=== PATIENT | female | born 1945 | race Caucasian/White ===

== ENCOUNTER 2017-03-12 11:41 | Inpatient (IN) ==
[2017-03-12 13:19] LABS: BE 3.5 mmoll (-3.0-3.0); BLOOD TYPE ARTERIAL; METHB 1.2 % (0.0-1.5); PCO2(98.6) 40 mmHg (35-45); PO2(98.6) 59 mmHg (60-100); SAMPLE BLOOD; SAO2 93.6 % (95.0-100.0); THB 15.7 g/dL (11.5-17.4); pH(98.6) 7.45 (7.35-7.45)
[2017-03-12 13:22] LABS: DRAW SITE R RADIAL
[2017-03-12 13:22] LABS: MANUAL DIFF NEEDED? NO
[2017-03-12 13:23] LABS: ALLEN TEST YES; MODALITY ROOM AIR
--- NOTE | 2017-03-12 13:24 | EKG Report ---
Test Performed on : 03/12/2017 1:01:03 PM Test Reason : CP Blood Pressure : / mmHG Vent. Rate : 084 BPM Atrial Rate : 084 BPM P-R Int : 180 ms QRS Dur : 146 ms QT Int : 456 ms P-R-T Axes : 072 -77 093 degrees QTc Int : 538 ms Sinus rhythm. with frequent ventricular-paced complexes and fusion complexes Left axis deviation Nonspecific intraventricular block Abnormal QRS-T angle, consider primary T wave abnormality Abnormal ECG When compared with ECG of 04-JUN-2016 16:48, Electronic ventricular pacemaker has replaced Wide QRS rhythm. Unconfirmed Result
[2017-03-12 13:38] LABS: BASO% 0.6 % (0.0-0.8); EOS# 0.15 X1000 (0.0-0.7); EOS% 1.2 % (0.0-10.0); HEMATOCRIT 47.7 % (37.0-47.0); HEMOGLOBIN 15.5 g/dL (12.0-16.0); IMM GRAN# 0.22 X1000 (0.0-0.04); IMM GRAN% 1.8 % (0.0-0.5); LYMPH# 2.98 X1000 (1.2-3.4); LYMPH% 24.5 % (20.5-51.1); MCH 32.2 PG (27-31); MCHC 32.5 g/dL (33-37); MCV 99.2 FL (81-99); MONO% 10.7 % (1.7-9.3); MPV 12.1 FL (7.4-10.4); NEUT% 61.2 % (42.2-75.2); PLT 154 X1000 (130-400); RBC 4.81 XMIL (4.2-5.4)
[2017-03-12 13:53] LABS: ALBUMIN 3.9 g/dL (3.5-5.0); POTASSIUM 4.1 mmol/L (3.5-5.1); TOTAL BILIRUBIN 0.5 mg/dL (0.20-1.00); TOTAL PROTEIN 6.3 g/dL (6.3-8.3)
[2017-03-12] MEDS ORDERED: SALINE LOCK IV FLUID XX ONE (14:45)
--- NOTE | 2017-03-12 15:00 | Diag Imaging Result Doc PS360 ---
EXAM: CHEST-2 VIEWS HISTORY: hypoxia TECHNIQUE: COMPARISON: 06/04/2016 FINDINGS: The lungs are hyperexpanded. The heart is borderline mildly prominent. There is a left-sided pacemaker. The vessels are not distended. There are no infiltrates. No pleural effusions. IMPRESSION: Emphysema. Electronically signed by Ivan Mendez 03/12/2017 2:58 PM
[2017-03-12 15:20] LABS: URINE MICROSCOPIC NEEDED? NO; URINE SOURCE CLEAN CATCH
[2017-03-12 15:38] LABS: BILIRUBIN URINE NEGATIVE (NEGATIVE); BLOOD URINE NEGATIVE (NEGATIVE); CLARITY CLEAR (CLEAR); COLOR YELLOW; GLUCOSE URINE NEGATIVE (NEGATIVE); LEUKOCYTES URINE NEGATIVE (NEGATIVE); NITRITE URINE NEGATIVE (NEGATIVE); PH URINE 6.5; PROTEIN URINE NEGATIVE (NEGATIVE); UROBILINOGEN URINE NORMAL
[2017-03-12] MEDS: LASIX IV SCH (15:38)
[2017-03-12] MEDS: ROCEPHIN 1 GM/NS 1 GM/50 ML IVPB IV SCH (15:38)
[2017-03-12] MEDS: DUONEB (A & A) INH SCH ×4 (15:55→21:25)
--- NOTE | 2017-03-12 16:04 | ECHO REPORT ---
ORDER DATE: 03/12/2017 ECHOCARDIOGRAPHIC MEASUREMENTS: 1. Interventricular septum 1.1. 2. Left ventricular posterior wall 1.1. 3. Diastolic diameter 6. 4. Left atrium 5. SUMMARY OF 2-DIMENSIONAL IMAGIN. There is moderate to severe biatrial enlargement. 2. Left ventricle is dilated with reduced left ventricular systolic function. Estimated ejection fraction off 35-40%. 3. Mitral valve was normal. Tricuspid valve was normal. Pacing leads were noted in the right chamber. 4. There is moderate tricuspid regurgitation, peak velocity across the tricuspid valve was 2.3 m/sec. There is trace pulmonary regurgitation. 5. There is mild mitral regurgitation. 6. There is no aortic stenosis, there is aortic sclerosis associated with mild aortic regurgitation. 7. There is no pericardial effusion or obvious intracardiac mass or thrombus seen. cc: MD Lazaro Sanchez MD
[2017-03-12] MEDS ORDERED: ULTRAM PO PRN (19:47)
[2017-03-12] MEDS ORDERED: ZOFRAN IV PRN (19:47)
[2017-03-12] MEDS: TYLENOL PO PRN (20:48)
[2017-03-12] MEDS: ELIQUIS PO SCH (20:49)
[2017-03-12] MEDS: COREG PO SCH (20:49)
[2017-03-12] MEDS: AMBIEN PO PRN (20:52)
[2017-03-13] MEDS: DUONEB (A & A) INH SCH ×4 (03:00→22:03)
[2017-03-13] MEDS: LASIX IV SCH (03:27)
[2017-03-13 05:44] LABS: MANUAL DIFF NEEDED? NO
[2017-03-13 05:58] LABS: BASO% 0.3 % (0.0-0.8); EOS# 0.21 X1000 (0.0-0.7); EOS% 1.5 % (0.0-10.0); HEMATOCRIT 48.3 % (37.0-47.0); HEMOGLOBIN 15.8 g/dL (12.0-16.0); IMM GRAN# 0.15 X1000 (0.0-0.04); IMM GRAN% 1.1 % (0.0-0.5); LYMPH# 3.11 X1000 (1.2-3.4); LYMPH% 22.4 % (20.5-51.1); MCH 31.7 PG (27-31); MCHC 32.7 g/dL (33-37); MONO# 1.48 X1000 (0.11-0.59); MONO% 10.6 % (1.7-9.3); MPV 12.2 FL (7.4-10.4); NEUT% 64.1 % (42.2-75.2); PLT 179 X1000 (130-400); RBC 4.98 XMIL (4.2-5.4)
--- NOTE | 2017-03-13 08:08 | HISTORY AND PHYSICAL ---
CHIEF COMPLAINT: Cough, congestion, cannot breathe. PRESENT ILLNESS: This is a 71-year-old white female, well known to me, that has been ill now for approximately 7 days. She has had progressive cough, congestion, wheezing. She has been seen in my office on 3 occasions. She has been unresponsive to conservative measures. Of note, it appears that she does have extensive coronary issues including chronic systolic heart failure, nonischemic cardiomyopathy with an ejection fraction of approximately 30% or less. She has a long history of atrial fibrillation as well. She does have a defibrillator implanted. She remains on anticoagulation therapy. Moderate mitral regurgitation. Long history of hypertension, chronic kidney disease stage 3, varicose veins, sleep apnea, COPD, asthma. She denies any fever or chills. She has thick mucus production. PAST SURGICAL HISTORY: Reveals an implanted defibrillator as stated. She had a wedge resection of her left lung in 1960 for TB, appendectomy in 1961, hysterectomy in 1979, back surgery x2 in 2003. SOCIAL HISTORY: She is a white female. She has no natural children of her own. She has no siblings. She formally smoked 2 packs a day; stopped some years ago. Rare alcohol use. CURRENT MEDICATIONS: Include Celexa 10 mg b.i.d., Ambien 5 mg at bedtime, Lasix 40 mg a day, Flexeril 10 mg t.i.d. p.r.n., B12 one a day, B1 one a day, potassium 10 mEq a day, Eliquis 5 mg b.i.d., Coreg 6.25 mg b.i.d., Aldactone 25 mg a day, and Cozaar 25 mg a day. ALLERGIES: To Levaquin and codeine. PHYSICAL EXAMINATION: GENERAL: Shows a well-developed, white female, in no acute distress, although she is wheezing and coughing. VITAL SIGNS: Temperature is 97.5, blood pressure 125/77, heart rate 80, weight 145 pounds, height 63.25 inches, respirations 18 and slightly labored, O2 saturation is 96%. GENERAL: The patient is awake and alert. She responds appropriately to questions. HEENT: TMs are clear. Pupils equally round, reactive. Nasal mucosa is moist. Oropharynx is clear. NECK: Supple. There is no obvious JVD. LUNGS: Show some wet bilateral rhonchi and bilateral inspiratory and expiratory wheezes. There is a very slight increased work of breathing. No retraction. HEART: Regular rate and rhythm with a 2/6 systolic ejection murmur. There is a subcutaneous implanted device in the left upper subclavian area. ABDOMEN: Soft, nontender. No masses. Good femoral pulses. No bruits. MUSCULOSKELETAL/NEUROLOGICAL: Intact. She moves all extremities symmetrically. She has extensive varicosities of the lower extremities. She has no peripheral edema, clubbing, or cyanosis. LABORATORY DATA: O2 saturation on admission to the hospital was 97% on room air. White blood cell count 12.14, hemoglobin and hematocrit are 15.5 and 47.7 respectively, MCV 99.2, platelets 154,000, 61 polys, 24 lymphs. Blood gases on room air, pH 7.45, pCO2 40, PO2 59, O2 saturation 93.6%. Sodium 140, potassium 4.1, chloride 102, CO2 28, anion gap of 10, BUN of 31, creatinine 1.0, blood sugar 85, GFR 54, osmolality 285, calcium 9.0, total bilirubin 0.5, AST 18, ALT 14, alkaline phosphatase 74. CK 29. Troponin less than 0.010. BNP 1,819. Total protein 6.3, albumin 3.9, globulin 2.0. Chest x-ray shows emphysematous changes/COPD changes but no acute infiltrates, hyperexpansion. No distended vessels. Echocardiogram on admission reveals moderate to severe biatrial enlargement. Left ventricle is dilated. Ejection fraction of 35 to 40%. Moderate tricuspid regurgitation. Mild mitral regurgitation. No aortic stenosis. There is some aortic sclerosis. No pericardial effusion. EKG revealed frequent ventricular paced complexes and fusion complexes. Abnormal QRST. There is electronic ventricular pacemaker with wide QRS. IMPRESSIONS: 1. A 71-year-old white female with failure of outpatient treatment for upper respiratory tract infection/bronchitis/asthma. 2. Known cardiomyopathy, nonischemic in nature with ejection fraction of less than 30%. 3. Chronic systolic congestive heart failure with mild exacerbation with elevated BNP. 4. Remote history of smoking abuse with chronic obstructive pulmonary disease. 5. Remote history of asthma. 6. Hypertension. 7. Long history of recurrent atrial fibrillation. 8. Chronic anticoagulation therapy using Eliquis 5 mg b.i.d. PLAN: 1. Will gently diurese. 2. We will culture. 3. Rocephin IV 1 g q.24 hours. 4. Nebulizer therapy using albuterol and ipratropium. 5. Strict I O. 6. Cardiac enzymes were negative, indicating no acute myocardial infarction. cc: Lazaro Montenegro MD
[2017-03-13] MEDS: COREG PO SCH ×3 (08:19→21:19)
[2017-03-13] MEDS: COZAAR PO SCH (08:19)
[2017-03-13] MEDS: CELEXA PO SCH ×2 (08:19→12:53)
[2017-03-13] MEDS: ALDACTONE PO SCH (08:19)
[2017-03-13] MEDS: ELIQUIS PO SCH ×2 (08:19→21:13)
[2017-03-13 10:57] LABS: ALBUMIN 4.1 g/dL (3.5-5.0); CALCIUM 9.3 mg/dL (8.8-10.2); POTASSIUM 3.9 mmol/L (3.5-5.1); TOTAL BILIRUBIN 0.5 mg/dL (0.20-1.00); TOTAL PROTEIN 6.7 g/dL (6.3-8.3)
[2017-03-13] MEDS: KLOR-CON PO SCH (14:01)
[2017-03-13] MEDS: ROCEPHIN 1 GM/NS 1 GM/50 ML IVPB IV SCH (15:17)
--- NOTE | 2017-03-13 17:09 | PROGRESS NOTE ---
DATE: 03/13/2017 CURRENT TIME: 1300 hours. LABORATORY DATA: White blood count 13.91, hematocrit 1548, MCV 97. Chemistry: Sodium 138, potassium 3.9, BUN and creatinine 36 and 1. Cardiac enzymes are negative. CKs negative. Telemetry monitoring shows normal sinus rhythm. PHYSICAL EXAMINATION: General: The patient is awake and alert at bedside. Family is at bedside, and stepdaughter. Vital signs: Temperature is 97.5 degrees, pulse 79, blood pressure 98/73, O2 saturation 96% on 2 L. Urine output, patient has recorded 350 mL but she has been more times than recorded. Lungs: Show overall increased breath sounds bilaterally. A few wet rhonchi, but no wheezes today. Heart: With a regular rate and rhythm. Abdomen: Soft, nontender. Musculoskeletal/Neurologically: Intact without peripheral edema, clubbing or cyanosis. IMPRESSION: 1. Chronic systolic congestive heart failure with acute exacerbation, now improved following diuresis. 2. Recent upper respiratory tract infection improving with nebulizer therapy. 3. Awaiting cultures. 4. She does have cardiomyopathy with a low ejection fraction less than 30% normally. She seems to be stable at that. PLAN: 1. Continue current medicines. 2. Convert to p.o. Lasix. 3. Add p.o. potassium. 4. Perhaps she should be able to go home tomorrow if cultures are negative. cc: Lazaro Montenegro MD
[2017-03-13] MEDS: AMBIEN PO PRN (21:13)
[2017-03-13] MEDS: TYLENOL PO PRN (22:56)
[2017-03-14] MEDS: DUONEB (A & A) INH SCH ×2 (03:45→10:11)
[2017-03-14 06:16] LABS: MANUAL DIFF NEEDED? NO
[2017-03-14 06:29] LABS: BASO% 0.5 % (0.0-0.8); EOS# 0.21 X1000 (0.0-0.7); EOS% 1.4 % (0.0-10.0); HEMATOCRIT 47.5 % (37.0-47.0); HEMOGLOBIN 15.2 g/dL (12.0-16.0); IMM GRAN# 0.14 X1000 (0.0-0.04); IMM GRAN% 0.9 % (0.0-0.5); LYMPH# 3.05 X1000 (1.2-3.4); LYMPH% 20.4 % (20.5-51.1); MCH 31.5 PG (27-31); MCV 98.3 FL (81-99); MONO# 1.76 X1000 (0.11-0.59); MONO% 11.7 % (1.7-9.3); MPV 12.2 FL (7.4-10.4); NEUT% 65.1 % (42.2-75.2); PLT 139 X1000 (130-400); RBC 4.83 XMIL (4.2-5.4)
[2017-03-14 06:49] LABS: ALBUMIN 3.7 g/dL (3.5-5.0); CALCIUM 9.1 mg/dL (8.8-10.2); TOTAL BILIRUBIN 0.6 mg/dL (0.20-1.00); TOTAL PROTEIN 6.2 g/dL (6.3-8.3)
[2017-03-14] MEDS ORDERED: LASIX PO SCH (09:00)
[2017-03-14] MEDS: CELEXA PO SCH ×2 (10:15→13:09)
[2017-03-14] MEDS: ELIQUIS PO SCH (10:15)
[2017-03-14] MEDS: KLOR-CON PO SCH (10:15)
[2017-03-14] MEDS: COZAAR PO SCH (10:16)
[2017-03-14] MEDS: COREG PO SCH (10:16)
[2017-03-14] MEDS: ALDACTONE PO SCH (10:16)
[2017-03-14 12:12] VITALS: BP 121/79
--- NOTE | 2017-03-15 13:12 | DISCHARGE SUMMARY ---
ADMISSION DATE: 03/12/2017 DISCHARGE DATE: 03/14/2017 PRIMARY DISCHARGE DIAGNOSES: 1. Chronic congestive heart failure with acute exacerbation. 2. Nonischemic cardiomyopathy. 3. Bronchitis. Gram-negative asiya on culture. 4. Hypertension. 5. Chronic atrial fibrillation with permanent pacemaker and defibrillator. DISCHARGE MEDICATIONS: She will resume her home medications as previously ordered. She will resume her Eliquis 5 mg b.i.d. Carvedilol 6.25 mg b.i.d. Citalopram 20 mg a day. Lasix 20 mg a day. Losartan 25 mg a day. Potassium chloride 20 mEq a day. Spironolactone 25 mg a day. Tramadol will be a new medication of 50 mg 1 or 2 q.4 hours p.r.n. Ambien 5 mg at bedtime. Tylenol p.r.n. She has Augmentin 500 mg at home. She will resume that twice a day. We will follow up on her sputum C and S. She was instructed not to restart her Lasix for 48 hours and then resume that. She will contact me tomorrow. I will see her in 1 week. HISTORY OF PRESENT ILLNESS: This is a 71-year-old white female admitted after failing outpatient treatment. She has had persistent cough, congestion, dyspnea. LABORATORY DATA: At time of discharge, sodium was 136, potassium 5.0. BUN and creatinine 41 and 1.0 respectively. All cardiac enzymes were negative. White blood count was 14.98, hemoglobin and hematocrit 15 and 47 respectively. Platelets were 139,000. Chest x-ray showed no acute abnormality. Echocardiogram demonstrated cardiomyopathy with ejection fraction of approximately 30%. There were no complicating features or changes from previous echocardiogram. Blood cultures were negative. BNP was slightly elevated upon admission at 1819. Arterial blood gas on room air pH 7.45, pCO2 40, PO2 59, O2 saturation 93.6%. HOSPITAL COURSE: The patient was admitted. She was diuresed using IV Lasix. She diuresed very well. Her overall pulmonary function improved. Her cough declined. Her wheezing declined. She was also treated with albuterol and ipratropium nebulizer. She did reach a dry weight and in fact, became slightly dehydrated with a rise in her BUN and white blood cell count. Lasix will be held for 2 days at time of discharge. She will resume her Augmentin at home pending the further C and S of the sputum. Overall her condition improved. At time of discharge, she has had 100% FiO2 on room air. She was eating well. She was ambulating well. Long discussion was made with she and her family. She will follow up with me on Sunday of next week. We will contact her tomorrow for an update on her condition and we will follow up on her sputum C and S. cc: Lazaro Montenegro MD
== END 2017-03-14 15:52 | disposition home or self-care (01) ==
LOC: P.DIRADM 11:41 → P.MEDSURG 12:31
PROVIDERS: ADMIT Family Medicine; ATTEND Family Medicine